=== PATIENT | female | born 2000 | race Caucasian/White ===

== ENCOUNTER 2021-11-24 16:14 | Observation (INO) | payer BC ==
[2018-01-02 11:00] VITALS: BP 104/69
[~2021-11-24 16:14] MED LIST: BUDE10.2 IH; NAPR-514 PO; NORE1TAB PO
[2021-11-24] MEDS ORDERED: IV RINGERS,LACTATED 1000ML 1,000 ML IV PRN (16:30)
[2021-11-24 16:58] LABS: BACTERIA,URINE MANY /HPF (0-FEW); RBC,URINE 0 /HPF (0-2); WBC,URINE TNTC /HPF (0-4); YEAST,URINE PRESENT /HPF
[2021-11-24] MEDS ORDERED: NITR100C62 PO (17:21)
== END 2021-11-24 18:47 | disposition home or self-care (01) ==
LOC: 3 SO LND 16:14
PROVIDERS: ADMIT Obstetrics & Gynecology; ATTEND Obstetrics & Gynecology
DX: O62.9 Abnormality of forces of labor, unspecified (principal); O23.42 Unspecified infection of urinary tract in pregnancy, second trimester; Z3A.22 22 weeks gestation of pregnancy
CPT/HCPCS: 59025; 81001; 87077; 87086; 87186; G0378; G0379